=== PATIENT | female | born 1970 | race Caucasian/White ===

== ENCOUNTER 2018-04-19 17:37 | Emergency (ER) | payer OTHER, SELFPAY ==
[2018-04-19] MEDS ORDERED: FOLIC ACID 1 MG, MULTIVITAMINS INJ 10 ML, THIAMINE HCL 100 MG in NA CHLORIDE 0.9% 1,000 ML IV ONE (18:00)
[2018-04-19] MEDS ORDERED: ONDANSETRON 4 MG/2 ML VIAL ONE (18:04)
[2018-04-19] MEDS ORDERED: NA CHLORIDE 0.9% 500 ML ONE (18:04)
[2018-04-19] MEDS ORDERED: FAMOTIDINE 20 MG/2 ML VIAL IV ONE (18:05)
[2018-04-19 18:15] LABS: Protime INR 1.01
[2018-04-19 18:29] LABS: ALT/SGPT 34 U/L (12-78); AST/SGOT 50 U/L (15-37); Albumin 3.2 g/dL (3.4-5.0); Alkaline Phosphatase 81 U/L (45-117); BUN Blood Urea Nitrogen 5 mg/dL (7-18); Bicarbonate 26 mmol/L (21-32); Bilirubin Direct < 0.1 mg/dL (0-0.2); Bilirubin Total 0.2 mg/dL (0.2-1.0); Glucose Level 85 mg/dL (74-106); Potassium 3.4 mmol/L (3.5-5.1); Protein, Total 6.3 g/dL (6.4-8.2); Sodium Level 144 mmol/L (136-145)
[2018-04-19 18:32] LABS: Absolute Lymphocytes (CBC) 2.8 K/uL (0.7-4.9); Absolute Monocytes 0.4 K/uL (0.1-1.3); Basophils % 0.8 % (0-1.3); Eosinophils % 0.6 % (0-4.4); Hematocrit 34.3 % (36.0-45.0); Lymphocytes % 43.8 % (15.3-44.8); MCV 85.6 fL (80-100); MPV 6.5 fL (7.6-11.3); Monocytes % 6.5 % (3.3-12.3); RBC Red Blood Cell Count 4.01 M/uL (3.86-4.86)
[2018-04-19] MEDS ORDERED: LORazepam 2 MG/ML VIAL ONE (19:28)
[2018-04-19] MEDS ORDERED: HALOPERIDOL LACT 5 MG/ML INJ ONE (19:33)
[2018-04-19 19:43] LABS: Barbiturates NEGATIVE (NEGATIVE); Benzodiazepines NEGATIVE (NEGATIVE); Cocaine NEGATIVE (NEGATIVE); METHAMPHETAM NEGATIVE (NEGATIVE); Methadone NEGATIVE (NEGATIVE); Opiates NEGATIVE (NEGATIVE); Phencyclidine NEGATIVE (NEGATIVE); THC Cannibis NEGATIVE (NEGATIVE)
[2018-04-19 19:56] LABS: Urine Blood TRACE (NEG); Urine Glucose NEGATIVE (NEG); Urine Protein NEGATIVE (NEG); Urine Specific Gravity <1.005 (1.005-1.030); Urine pH 5.5 (5.0-7.0)
--- NOTE | 2018-04-19 22:26 | EKG ---
Test Date: 2018-04-19 Test Time: 17:53:11 [facility] Coordinator: NOREEN MEASUREMENT RESULTS: Intervals: Rate: 84 MN: 146 QRSD: 84 QT: 388 QTc: 458 Goodman: P: 42 MN: 146 QRS: 10 T: 45 INTERPRETIVE STATEMENTS: Normal sinus rhythm Normal ECG Compared to ECG 12/27/2016 13:45:25 No significant changes Electronically Signed On 04-19-18 22:25:42 CDT by Chago Berg
[2018-04-20] MEDS ORDERED: NA CHLORIDE 0.9% 1,000 ML ONE ×2 (02:44→03:52)
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
[2018-04-20] MEDS ORDERED: IBUPROFEN 200 MG TAB PO ONE (08:13)
== END 2018-04-20 08:58 | disposition home or self-care (01) ==
LOC: ER 17:37
DX: E87.6 Hypokalemia (principal); F41.9 Anxiety disorder, unspecified; F32.9 Major depressive disorder, single episode, unspecified
CPT/HCPCS: 36415; 80048; 80076; 80307; 80320; 80329; 81003; 82962; 84703; 85025; 85610; 85730; 93005; 96361; 96365; 96366; 96372; 96375; 99285; J1630; J2405; J3411; J7030

== ENCOUNTER 2018-06-15 17:01 | Emergency (ER) | payer SELFPAY ==
[2018-06-15] MEDS ORDERED: THIAMINE 200 MG/2 ML INJ ONE (17:33)
[2018-06-15] MEDS ORDERED: NA CHLORIDE 0.9% 1,000 ML ONE ×2 (17:34→19:16)
[2018-06-15] MEDS ORDERED: FAMOTIDINE 20 MG/2 ML VIAL IV ONE (17:34)
[2018-06-15] MEDS ORDERED: METHYLPREDNISOLONE 125 MG INJ ONE (17:40)
[2018-06-15 17:50] LABS: Absolute Lymphocytes (CBC) 2.1 K/uL (0.7-4.9); Absolute Monocytes 0.4 K/uL (0.1-1.3); Absolute Neutrophil 3.6 K/uL (1.8-8.0); Basophils % 1.2 % (0-1.3); Eosinophils % 0.2 % (0-4.4); Hematocrit 32.2 % (36.0-45.0); Lymphocytes % 34.3 % (15.3-44.8); MCH 26.8 pg (27.0-35.0); MCV 82.2 fL (80-100); MPV 6.5 fL (7.6-11.3); Monocytes % 6.2 % (3.3-12.3); RBC Red Blood Cell Count 3.92 M/uL (3.86-4.86)
[2018-06-15 17:56] LABS: Protime INR 1.01
[2018-06-15] MEDS ORDERED: FOLIC ACID 1 MG, MULTIVITAMINS INJ 10 ML, THIAMINE HCL 100 MG in NA CHLORIDE 0.9% 1,000 ML IV SCH (18:00)
[2018-06-15 18:12] LABS: Anisocytosis 2+; Blood Morphology Comment NOTED (NOT SEEN); Hypochromasia 1+; Macrocytosis 1+; Platelet Estimate ADEQ; Urine White Blood Cell Casts OK
[2018-06-15 18:13] LABS: Elliptocytes 1+
[2018-06-15 18:23] LABS: ALT/SGPT 23 U/L (12-78); AST/SGOT 34 U/L (15-37); Albumin 3.5 g/dL (3.4-5.0); Alkaline Phosphatase 80 U/L (45-117); BUN Blood Urea Nitrogen 5 mg/dL (7-18); Bicarbonate 22 mmol/L (21-32); Bilirubin Direct 0.1 mg/dL (0-0.2); Bilirubin Total 0.3 mg/dL (0.2-1.0); Glucose Level 91 mg/dL (74-106); Lipase 734 U/L (73-393); Magnesium 1.9 mg/dL (1.8-2.4); NT PRO-BNP 30 pg/mL (<125); Potassium 3.6 mmol/L (3.5-5.1); Protein, Total 6.7 g/dL (6.4-8.2); Sodium Level 144 mmol/L (136-145); Troponin (Emerg Dept Use Only) < 0.02 ng/mL (0.0-0.045)
--- NOTE | 2018-06-15 18:31 | RAD REPORT ---
EXAM DESCRIPTION: CT - CTHCSPWOC - 06/15/2018 6:15 pm CLINICAL HISTORY: Fall, head and neck injury COMPARISON: None. TECHNIQUE: Axial 5 mm thick images of the head were obtained. Axial 2 mm thick images of the cervic al spine were obtained with sagittal and coronal reconstruction images generated and reviewed. All CT scans are performed using dose optimization technique as appropriate and may include automated exposure control or mA/KV adjustment according to patient size. FINDINGS: No intracranial hemorrhage, mass, edema or acute intracranial finding. No suspicion for acute infarct ion. No extra-axial fluid collections. Mastoid air cells and paranasal sinuses are clear. No globe or orbit abnormality seen. Cervical body height and alignment are normal. C5-6 disc space narrowing present with bilateral bony foraminal encroachment. No fracture or acute bony abnormality. Central canal detail is inherently cisneros ited and cannot be fully assessed. Left-sided posterior endplate spurring at C5-6 likely has impact o n the cord. No paraspinal mass or hematoma. IMPRESSION: Negative CT head examination for acute or significant finding. No fracture or acute cervical spine finding. Advanced for age degenerative changes at C5-6 with bilateral bony foraminal encroachment and a left-s ided canal bone spur that likely flattens the cord.
[2018-06-15] MEDS ORDERED: MAGNESIUM SULFATE 1 gm IVPB 1 GM/100 ML BAG IV ONE (18:36)
--- NOTE | 2018-06-15 18:49 | ER ---
Nurse's Notes [facility] Name: Phoebe Sheets Age: 48 yrs Sex: Female : 1970 Arrival Date: 06/15/2018 Time: 17:06 Bed 20 Private MD: Diagnosis: Alcohol abuse;Alcohol abuse with intoxication;Fall due to bumping against object;Syncope and collapse Presentation: 06/15 17:08 Presenting complaint: EMS states: called out for intoxication, [place] [employer] wanted pt em assessed due to ETOH on board, PD reports pt had about 4 bottles of wine and was found in a neighbors yard passed out. Transition of care: patient was not received from another setting of care. Onset of symptoms was June 15, 2018. Risk Assessment: Do you want to hurt yourself or someone else? Patient reports no desire to harm self or others. Initial Sepsis Screen: Does the patient meet any 2 criteria? No. Patient's initial sepsis screen is negative. Does the patient have a suspected source of infection? No. Patient's initial sepsis screen is negative. Care prior to arrival: None. 17:08 Method Of Arrival: EMS: [facility] em 17:23 Acuity: JOVAN 3 ss Triage Assessment: 17:11 General: Appears in no apparent distress. comfortable, Behavior is cooperative, Smells em of alcohol. Pain: Unable to use pain scale. Historical: - Allergies: 17:11 No Known Allergies; em - Home Meds: 17:11 Prozac Oral [Active]; trazodone 100 mg Oral tab 1 tab daily [Active]; em - PMHx: 17:11 Anxiety; Depression; em - PSHx: 17:11 Gastric Bypass; ; Cholecystectomy; perf peptic ulcer; em - Immunization history:: Adult Immunizations unknown. - Social history:: Smoking status: unknown. - Ebola Screening: : Unable to complete screening because pt intoxicated . - Family history:: not pertinent. Screenin:19 Abuse screen: Denies threats or abuse. Nutritional screening: No deficits noted. em Tuberculosis screening: No symptoms or risk factors identified. Fall Risk None identified. Assessment: 17:14 General: Appears in no apparent distress. comfortable, slender, well developed, em Behavior is calm, cooperative, Smells of alcohol. Pain: Denies pain. Neuro: Level of Consciousness is awake, alert, obeys commands, Oriented to person, place, time, situation. Cardiovascular: Capillary refill < 3 seconds Patient's skin is warm and dry. Respiratory: Airway is patent Respiratory effort is even, unlabored, Respiratory pattern is regular, symmetrical. GI: Abdomen is flat, Abd is soft and non tender X 4 quads. : No signs and/or symptoms were reported regarding the genitourinary system. EENT: No signs and/or symptoms were reported regarding the EENT system. Derm: Skin is intact, Skin is pink, warm \T\ dry. Musculoskeletal: Range of motion: intact in all extremities. 17:20 General: The previous assessment is accurate, call light remains within reach. . ss 18:15 Reassessment: Patient appears in no apparent distress at this time. Patient and/or em family updated on plan of care and expected duration. Pain level reassessed. Patient is alert, oriented x 3, equal unlabored respirations, skin warm/dry/pink. 19:00 Reassessment: Patient appears in no apparent distress at this time. Patient and/or jb4 family updated on plan of care and expected duration. Pain level reassessed. Patient is alert, oriented x 3, equal unlabored respirations, skin warm/dry/pink. Pt reports wanting to leave. disconnected fluids and attempted to leave. alerted of situation and risk of leaving. General: Waiting for ride or for patient to become less intoxicated to discharge.. Cardiovascular: Patient's skin is warm and dry. Respiratory: Airway is patent Respiratory effort is even, unlabored, Respiratory pattern is regular, symmetrical. 20:00 Reassessment: Patient appears in no apparent distress at this time. Patient and/or jb4 family updated on plan of care and expected duration. Pain level reassessed. Patient is alert, oriented x 3, equal unlabored respirations, skin warm/dry/pink. 20:35 Reassessment: PT is becoming more agitated and uncooperative wanting to leave. jb4 Explained to pt the risk of leaving and the need to be continually be monitored until alcohol decreases. 21:26 Reassessment: Patient appears in no apparent distress at this time. Patient and/or jb4 family updated on plan of care and expected duration. Pain level reassessed. Patient is alert, oriented x 3, equal unlabored respirations, skin warm/dry/pink. Pt is being uncooperative. Pt attempting to push past staff and leave. removed own IV. Refusing to stay PD called and alerted of situation. Vital Signs: 17:14 BP 136 / 99; Pulse 76; Resp 16; Temp 98.2(TE); Pulse Ox 100% on R/A; em 18:35 BP 112 / 71; Pulse 66; Resp 14; Pulse Ox 99% on R/A; Pain 0/10; em 19:15 BP 122 / 76; Pulse 63; Resp 16; Pulse Ox 99% on R/A; jb4 20:00 BP 116 / 72; Pulse 76; Resp 16; Pulse Ox 99% on R/A; jb4 21:16 BP 116 / 72; Pulse 86; Resp 18; Pulse Ox 99% on R/A; jb4 ED Course: 17:06 Patient arrived in ED. em 17:09 Carloz Bah MD is Attending Physician. [facility] 17:16 Beck Cheung LVN is Primary Nurse. em 17:16 Arm band placed on. em 17:23 Triage completed. ss 17:40 Initial lab(s) drawn, by me, sent to lab. Inserted saline lock: 20 gauge in right mh5 antecubital area, using aseptic technique. Blood collected. 17:42 Patient has correct armband on for positive identification. Placed in gown. Bed in low mh5 position. Call light in reach. Side rails up X2. Warm blanket given. Pulse ox on. NIBP on. 17:43 X-ray completed. Portable x-ray completed in exam room. Patient tolerated procedure ls3 well. 17:43 Lipase Sent. 5 17:43 Acetaminophen Sent. 5 17:43 ETOH Level Sent. 5 17:43 Ptt, Activated Sent. 5 17:43 Salicylate Sent. 5 17:43 Basic Metabolic Panel Sent. 5 17:43 CBC with Diff Sent. 5 17:43 LFT's Sent. 5 17:43 Magnesium Sent. 5 17:43 NT PRO-BNP Sent. 5 17:44 PT-INR Sent. 5 17:44 Troponin (emerg Dept Use Only) Sent. 5 18:04 XRAY Chest (1 view) In Process Unspecified. EDMS 18:[address] wy 18:16 CT completed. Patient tolerated procedure well. Patient moved back from CT. vm2 18:17 CT Head C Spine In Process Unspecified. EDMS 19:35 Urine Culture Sent. 5 19:35 Urine Drug Screen Sent. 5 19:36 Urine collected: clean catch specimen, clear. 5 21:16 No provider procedures requiring assistance completed. IV discontinued, intact, jb4 bleeding controlled, Pt removed own IV. Administered Medications: 18:10 Drug: NS 0.9% 1000 ml Route: IV; Rate: 1 bolus; Site: left antecubital; ss 19:26 Follow up: Response: No adverse reaction; IV Status: Completed infusion jb4 18:10 Drug: Thiamine 100 mg Route: IV; Rate: bolus; Site: left antecubital; ss 18:10 Drug: Pepcid 20 mg Route: IVP; Site: left antecubital; ss 18:31 Follow up: Response: No adverse reaction em 18:31 Drug: Banana Bag - (NS 0.9% 1000 ml, foLIC Acid 1 mg, Thiamine 100 mg, Multivitamin 1 em amp) Route: IV; Rate: 125 ml/hr; Site: right antecubital; 21:10 Follow up: Response: No adverse reaction; IV Status: Pt removed own IV. jb4 18:31 Drug: Magnesium Sulfate 1 grams Route: IVPB; Infused Over: 1 hrs; Site: right em antecubital; 20:00 Follow up: Response: No adverse reaction; IV Status: Completed infusion jb4 19:25 Drug: Zofran 4 mg Route: IVP; Site: right antecubital; jb4 21:10 Follow up: Response: No adverse reaction; Nausea is decreased 4 19:26 Drug: NS 0.9% 1000 ml Route: IV; Rate: 1 bolus; Site: right antecubital; jb4 22:07 Follow up: IV Status: Order to discontinue infusion; Order to discontinue infusion, Pt jb4 removed IV. Outcome: 18:48 Discharge ordered by MD. bowles 21:16 Discharged to Law Enforcement 4 21:16 Condition: stable 21:16 Discharge instructions given to patient, Instructed on discharge instructions, follow up and referral plans. medication usage, Demonstrated understanding of instructions, follow-up care, medications, Prescriptions given X 3. 21:34 Patient left the ED. jb4 Signatures: Dispatcher [employer] EDCarloz Knight MD MD cha Munoz, Edgar, CAMPAIGN SPECIALIST CAMPAIGN SPECIALIST Aracelis Drew, ZEINAB RN Owen Pierre RN RN jb4 Parviz Hester Maria 5 Becca Teresa 2 Lizeth Zhong ls3 Corrections: (The following items were deleted from the chart) 21:30 19:00 Reassessment: Patient appears in no apparent distress at this time. Patient jb4 and/or family updated on plan of care and expected duration. Pain level reassessed. Patient is alert, oriented x 3, equal unlabored respirations, skin warm/dry/pink. jb4
--- NOTE | 2018-06-15 18:49 | EDPHYS ---
Physician Documentation [facility] Name: Phoebe Sheets Age: 48 yrs Sex: Female : 1970 Arrival Date: 06/15/2018 Time: 17:06 Bed 20 Private MD: ED Physician Carloz Bah HPI: 06/15 17:50 This 48 yrs old Female presents to ER via EMS with complaints of ETOH Abuse. wilbur 17:50 hx of etoh abuse. The patient presents with confusion, decreased mental status. Onset: wilbur The symptoms/episode began/occurred just prior to arrival. Possible causes: alcohol. Associated signs and symptoms: The patient has no apparent associated signs or symptoms. Onset: The symptoms/episode began/occurred today. Patient's baseline: Neuro: alert and fully oriented. Severity of symptoms: At their worst the symptoms were mild moderate in the emergency department the symptoms are unchanged. The patient has not experienced similar symptoms in the past. Historical: - Allergies: 17:11 No Known Allergies; em - Home Meds: 17:11 Prozac Oral [Active]; trazodone 100 mg Oral tab 1 tab daily [Active]; em - PMHx: 17:11 Anxiety; Depression; em - PSHx: 17:11 Gastric Bypass; ; Cholecystectomy; perf peptic ulcer; em - Immunization history:: Adult Immunizations unknown. - Social history:: Smoking status: unknown. - Ebola Screening: : Unable to complete screening because pt intoxicated . - Family history:: not pertinent. ROS: 17:50 Constitutional: Negative for fever, chills, and weight loss, Eyes: Negative for injury, wilbur pain, redness, and discharge, ENT: Negative for injury, pain, and discharge, Neck: Negative for injury, pain, and swelling, Cardiovascular: Negative for chest pain, palpitations, and edema, Respiratory: Negative for shortness of breath, cough, wheezing, and pleuritic chest pain, Abdomen/GI: Negative for abdominal pain, nausea, vomiting, diarrhea, and constipation, Back: Negative for injury and pain, : Negative for injury, bleeding, discharge, and swelling, MS/Extremity: Negative for injury and deformity, Skin: Negative for injury, rash, and discoloration, Psych: Negative for depression, anxiety, suicide ideation, homicidal ideation, and hallucinations, Allergy/Immunology: Negative for hives, rash, and allergies, Endocrine: Negative for neck swelling, polydipsia, polyuria, polyphagia, and marked weight changes, Hematologic/Lymphatic: Negative for swollen nodes, abnormal bleeding, and unusual bruising. 17:50 Neuro: Positive for altered mental status, weakness. Exam: 17:50 Constitutional: This is a well developed, well nourished patient who is awake, alert, wilbur and in no acute distress. Eyes: Pupils equal round and reactive to light, extra-ocular motions intact. Lids and lashes normal. Conjunctiva and sclera are non-icteric and not injected. Cornea within normal limits. Periorbital areas with no swelling, redness, or edema. ENT: Nares patent. No nasal discharge, no septal abnormalities noted. Tympanic membranes are normal and external auditory canals are clear. Oropharynx with no redness, swelling, or masses, exudates, or evidence of obstruction, uvula midline. Mucous membranes moist. Neck: Trachea midline, no thyromegaly or masses palpated, and no cervical lymphadenopathy. Supple, full range of motion without nuchal rigidity, or vertebral point tenderness. No Meningismus. Chest/axilla: Normal chest wall appearance and motion. Nontender with no deformity. No lesions are appreciated. Cardiovascular: Regular rate and rhythm with a normal S1 and S2. No gallops, murmurs, or rubs. Normal PMI, no JVD. No pulse deficits. Respiratory: Lungs have equal breath sounds bilaterally, clear to auscultation and percussion. No rales, rhonchi or wheezes noted. No increased work of breathing, no retractions or nasal flaring. Abdomen/GI: Soft, non-tender, with normal bowel sounds. No distension or tympany. No guarding or rebound. No evidence of tenderness throughout. Back: No spinal tenderness. No costovertebral tenderness. Full range of motion. Skin: Warm, dry with normal turgor. Normal color with no rashes, no lesions, and no evidence of cellulitis. MS/ Extremity: Pulses equal, no cyanosis. Neurovascular intact. Full, normal range of motion. Neuro: Awake and alert, GCS 15, oriented to person, place, time, and situation. Cranial nerves II-XII grossly intact. Motor strength 5/5 in all extremities. Sensory grossly intact. Cerebellar exam normal. Normal gait. Psych: Awake, alert, with orientation to person, place and time. Behavior, mood, and affect are within normal limits. 17:50 Neuro: Orientation: appropriate for stated age, Mentation: confused, Memory: appropriate for stated age, Cranial nerves: is grossly normal based on the patient's age, no acute changes, Cerebellar function: unable to test, Motor: moves all fours, Sensation: no obvious gross deficits, appropriate Gait: is unsteady, not tested. Babinski testing is normal. Vital Signs: 17:14 BP 136 / 99; Pulse 76; Resp 16; Temp 98.2(TE); Pulse Ox 100% on R/A; em 18:35 BP 112 / 71; Pulse 66; Resp 14; Pulse Ox 99% on R/A; Pain 0/10; em 19:15 BP 122 / 76; Pulse 63; Resp 16; Pulse Ox 99% on R/A; jb4 20:00 BP 116 / 72; Pulse 76; Resp 16; Pulse Ox 99% on R/A; jb4 21:16 BP 116 / 72; Pulse 86; Resp 18; Pulse Ox 99% on R/A; jb4 MDM: 17:09 Patient medically screened. [facility] 17:50 Data reviewed: vital signs, nurses notes, lab test result(s), EKG, radiologic studies, [facility] CT scan, plain films. 06/15 17:11 Order name: Basic Metabolic Panel; Complete Time: 18:46 [facility] 06/15 17:11 Order name: CBC with Diff; Complete Time: 18:46 [facility] 06/15 17:11 Order name: LFT's; Complete Time: 18:46 [facility] 06/15 17:11 Order name: Magnesium; Complete Time: 18:46 [facility] 06/15 17:11 Order name: NT PRO-BNP; Complete Time: 18:46 [facility] 06/15 17:11 Order name: PT-INR; Complete Time: 18:46 [facility] 06/15 17:11 Order name: Troponin (emerg Dept Use Only); Complete Time: 18:46 [facility] 06/15 17:11 Order name: Acetaminophen; Complete Time: 18:46 [facility] 06/15 17:11 Order name: ETOH Level; Complete Time: 18:46 [facility] 06/15 17:11 Order name: Ptt, Activated; Complete Time: 18:46 [facility] 06/15 17:11 Order name: Salicylate; Complete Time: 18:46 [facility] 06/15 17:11 Order name: Urine Drug Screen [facility] 06/15 17:11 Order name: Lipase; Complete Time: 18:46 [facility] 06/15 17:12 Order name: Urine Culture [facility] 06/15 17:11 Order name: XRAY Chest (1 view) [facility] 06/15 17:11 Order name: EKG; Complete Time: 17:13 [facility] 06/15 17:11 Order name: Cardiac monitoring; Complete Time: 17:44 [facility] 06/15 17:11 Order name: EKG - Nurse/Tech; Complete Time: 17:44 [facility] 06/15 17:11 Order name: IV Saline Lock; Complete Time: 17:44 [facility] 06/15 17:54 Order name: CT Head C Spine; Complete Time: 18:46 [facility] 06/15 18:04 Order name: CBC Smear Scan; Complete Time: 18:46 EDMI 06/15 19:37 Order name: Urine Dipstick--Ancillary (enter results) ri 06/15 19:37 Order name: Urine --Ancillary (enter results) ri 06/15 17:11 Order name: Labs collected and sent; Complete Time: 17:44 [facility] 06/15 17:11 Order name: O2 Per Protocol; Complete Time: 18:36 [facility] 06/15 17:11 Order name: O2 Sat Monitoring; Complete Time: 18:36 [facility] 06/15 17:11 Order name: Urine Dipstick-Ancillary (obtain specimen); Complete Time: 19:35 [facility] Administered Medications: 18:10 Drug: NS 0.9% 1000 ml Route: IV; Rate: 1 bolus; Site: left antecubital; ss 19:26 Follow up: Response: No adverse reaction; IV Status: Completed infusion jb4 18:10 Drug: Thiamine 100 mg Route: IV; Rate: bolus; Site: left antecubital; ss 18:10 Drug: Pepcid 20 mg Route: IVP; Site: left antecubital; ss 18:31 Follow up: Response: No adverse reaction em 18:31 Drug: Banana Bag - (NS 0.9% 1000 ml, foLIC Acid 1 mg, Thiamine 100 mg, Multivitamin 1 em amp) Route: IV; Rate: 125 ml/hr; Site: right antecubital; 21:10 Follow up: Response: No adverse reaction; IV Status: Pt removed own IV. jb4 18:31 Drug: Magnesium Sulfate 1 grams Route: IVPB; Infused Over: 1 hrs; Site: right em antecubital; 20:00 Follow up: Response: No adverse reaction; IV Status: Completed infusion jb4 19:25 Drug: Zofran 4 mg Route: IVP; Site: right antecubital; jb4 21:10 Follow up: Response: No adverse reaction; Nausea is decreased jb4 19:26 Drug: NS 0.9% 1000 ml Route: IV; Rate: 1 bolus; Site: right antecubital; jb4 22:07 Follow up: IV Status: Order to discontinue infusion; Order to discontinue infusion, Pt jb4 removed IV. Disposition: 06/15/18 18:48 Discharged to Home. Impression: Alcohol abuse, Alcohol abuse with intoxication, Fall due to bumping against object, Syncope and collapse. - Condition is Stable. - Discharge Instructions: Alcohol Intoxication, Fall Prevention in the Home, Weakness, Alcohol Intoxication, Dkye-ik-[id number], Near-Syncope, [id number], Alcohol Abuse and Nutrition, Weakness, Fybu-iq-Ojmu. - Prescriptions for Vitamin 27- 0.8 mg Oral Tablet - take 1 tablet by ORAL route once daily; 30 tablet. Zofran 4 mg Oral Tablet - take 1 tablet by ORAL route every 12 hours As needed; 20 tablet. Pepcid 20 mg Oral Tablet - take 1 tablet by ORAL route every 12 hours for 10 days; 20 tablet. - Medication Reconciliation Form, Thank You Letter, Antibiotic Education, Prescription Opioid Use form. - Follow up: Private Physician; When: 2 - 3 days; Reason: Recheck today's complaints, Continuance of care, Re-evaluation by your physician. - Problem is new. - Symptoms have improved. Signatures: Dispatcher [employer] EDMI Carloz Bah MD MD cha Munoz, Edgar, SCHEDULE ANNOUNCER SCHEDULE ANNOUNCER Aracelis Drew, Owen Yanez RN, RN RN jb4 Corrections: (The following items were deleted from the chart) 21:34 18:48 06/15/2018 18:48 Discharged to Home. Impression: Alcohol abuse; Alcohol abuse jb4 with intoxication; Fall due to bumping against object; Syncope and collapse. Condition is Stable. Discharge Instructions: Alcohol Intoxication, Fall Prevention in the Home, Weakness, Alcohol Intoxication, Oxhx-au-Gygo, Near-Syncope, Easi-ew-Lasf, Alcohol Abuse and Nutrition, Weakness, Bbbk-[id number]-Hgsv. Prescriptions for Vitamin 27-0.8 mg Oral Tablet - take 1 tablet by ORAL route once daily; 30 tablet, Zofran 4 mg Oral Tablet - take 1 tablet by ORAL route every 12 hours As needed; 20 tablet. and Forms are Medication Reconciliation Form, Thank You Letter, Antibiotic Education, Prescription Opioid Use. Follow up: Private Physician; When: 2 - 3 days; Reason: Recheck today's complaints, Continuance of care, Re-evaluation by your physician. Problem is new. Symptoms have improved. wilbur
[2018-06-15] MEDS ORDERED: ONDANSETRON 4 MG/2 ML VIAL ONE (19:16)
--- NOTE | 2018-06-15 19:24 | RAD REPORT ---
EXAM DESCRIPTION: RAD - Chest Single View - 06/15/2018 5:45 pm CLINICAL HISTORY: Cough, shortness of breath COMPARISON: December 2007 TECHNIQUE: AP portable chest image was obtained 1741 hours . FINDINGS: Lungs are clear. Heart and vasculature are normal. No measurable pleural effusion and no p neumothorax. No acute bony abnormality seen. No acute aortic findings suspected. IMPRESSION: No acute cardiopulmonary process.
[2018-06-15 19:57] LABS: Barbiturates NEGATIVE (NEGATIVE); Benzodiazepines NEGATIVE (NEGATIVE); Cocaine NEGATIVE (NEGATIVE); METHAMPHETAM NEGATIVE (NEGATIVE); Methadone NEGATIVE (NEGATIVE); Opiates NEGATIVE (NEGATIVE); Phencyclidine NEGATIVE (NEGATIVE); THC Cannibis NEGATIVE (NEGATIVE)
[2018-06-15 20:16] LABS: Urine Blood TRACE (NEG); Urine Glucose NEGATIVE (NEG); Urine Protein NEGATIVE (NEG); Urine pH 6.5 (5.0-7.0)
--- NOTE | 2018-06-16 06:59 | EKG ---
Test Date: 2018-06-15 Test Time: 17:50:58 Personnel Specialist: DARYN MEASUREMENT RESULTS: Intervals: Rate: 69 MT: 138 QRSD: 88 QT: 424 QTc: 454 [place]: P: 21 MT: 138 QRS: 21 T: 50 INTERPRETIVE STATEMENTS: Normal sinus rhythm Normal ECG Compared to ECG 04/19/2018 17:53:11 No significant changes Electronically Signed On 06-16-18 06:59:06 RESEARCH ASST by Chago Berg
== END 2018-06-15 21:34 | disposition home or self-care (01) ==
LOC: ER 17:01
DX: F10.129 Alcohol abuse with intoxication, unspecified (principal); R55 Syncope and collapse; W18.00XA Striking against unspecified object with subsequent fall, initial encounter; Y93.9 Activity, unspecified; Y92.9 Unspecified place or not applicable; F41.9 Anxiety disorder, unspecified; F32.9 Major depressive disorder, single episode, unspecified
CPT/HCPCS: 36415; 70450; 71045; 72125; 80048; 80076; 80307; 80320; 80329; 81003; 81025; 83690; 83735; 83880; 84484; 85025; 85610; 85730; 87086; 87088; 93005; 99285; J2405; J2930; J3411; J3475; J7030

== ENCOUNTER 2024-10-31 10:45 | Day surgery (SDC) | payer BC ==
--- NOTE | 2024-10-30 11:55 | EKG ---
Test Date: 2024-10-30 Test Time: 11:19:09 Credit Control Assistant: STEPH MEASUREMENT RESULTS: Intervals: Rate: 67 RI: 150 QRSD: 78 QT: 390 QTc: 412 [place]: P: 55 RI: 150 QRS: 41 T: 65 INTERPRETIVE STATEMENTS: Normal sinus rhythm Normal ECG Compared to ECG 05/01/2023 22:25:03 No significant changes Electronically Signed On 10-30-24 11:55:06 CDT by Miguelito Arriaga
[2024-10-31] MEDS ORDERED: Ringers Lactate 1,000 ML IV ONE (11:03)
[2024-10-31] MEDS ORDERED: ONDANSETRON 4 MG/2 ML VIAL ONE (11:23)
[2024-10-31] MEDS ORDERED: propofoL 200 MG/20 ML VIAL IV ONE (11:23)
[2024-10-31] MEDS ORDERED: LIDOCAINE 2% MPF 5 ML VIAL ONE (11:23)
[2024-10-31] MEDS ORDERED: MIDAZOLAM HCL 2 MG/2 ML INJ ONE (11:24)
[2024-10-31] MEDS ORDERED: FENTANYL CITR 100 MCG/2 ML ONE (11:24)
[2024-10-31] MEDS: CEFOXITIN SODIUM 2 GM/VIAL ONE (12:28)
[2024-10-31] MEDS: LIDOCAINE HCL/EPINEPHRINE 20 ML MDV ONE (12:45)
[2024-10-31] MEDS: METHYLENE BLUE 1% 10 ML VIAL ONE (12:48)
[2024-10-31] MEDS ORDERED: GLYCOPYRROLATE 0.2 MG/ML SYR ONE (12:54)
[2024-10-31] MEDS ORDERED: dexAMETHasone 10 MG/ML VIAL ONE (12:54)
--- NOTE | 2024-10-31 12:57 | P.OP ---
Preoperative diagnosis: Perineal Cyst Postoperative diagnosis: Perineal Cyst Primary procedure: Exam Under Anesthesia Secondary procedure: Excision of Perineal Cyst Anesthesia: GETA + Local Estimated blood loss: <5cc Specimen: Perineal Cyst Findings: ~ 2cm perineal cyst Complications: None Transferred to: Recovery Room Condition: Good
[2024-10-31 13:17] VITALS: O2SAT 100
--- NOTE | 2024-10-31 13:30 | OP ---
Date of Procedure: 10/31/2024 Surgeon: Glen Romo MD, Preoperative Diagnosis: Perineal cyst. Postoperative Diagnosis: Perineal cyst. Procedures Performed: 1. Exam under anesthesia. 2. Excision of perineal cyst. Anesthesia: General endotracheal plus local with 1% lidocaine with epinephrine. Estimated Blood Loss: Less than 5 cc. Specimen: Hernia cyst. Findings: Approximately 2 cm perineal cyst adjacent to the anus along the right buttock area at the 7 o'clock position. Complications: None. Disposition: The patient transferred to recovery room in good condition. Procedure In Detail: After informed consent was obtained, patient was brought to the operating room, prepped and draped in the usual sterile fashion after adequate anesthesia was achieved. I anestheti zed an area of a perineal cyst which was palpable; position as described above. I then injected meth ylene blue into this area. I performed anoscopy at this point looking at the anus to see if there wa s any methylene blue emanating from this area, in which none was appreciated. At this point, the pro cedure was abandoned from the intraanal portion of this as there was no evidence of fistulous connect ion. At this point, I proceeded to make an elliptical incision circumferentially around the cyst ult imately with a 15 blade down to subcutaneous tissues. Electrocautery was used to dissect circumferen tially around all blue affected tissues. This was then taken out in its entirety and sent off for pa thologic examination. The area was copiously irrigated and closed with interrupted 3-0 nylon sutures and sterile dressing placed over top. The patient tolerated the procedure without incident or compl ication and transferred to PACU in good condition. All counts were correct at the end of the case. YOVANA/BIJALL Voice ID: [id number] Report ID: [id number]
[2024-10-31] MEDS ORDERED: HYDROCODONE/APAP 7.5/325 MG TAB ONE (14:24)
[2024-10-31] MEDS: HYDROCODONE/APAP 7.5/325 MG TAB PO ONE (14:38)
[2024-10-31 15:00] VITALS: BP 109/73; TEMP 97.2
== END 2024-10-31 14:56 | disposition home or self-care (01) ==
LOC: OR 10:45
PROVIDERS: ATTEND Surgery
PROC: 0WBN0ZZ Excision of Female Perineum, Open Approach (ICD-10-PCS; principal; 2024-10-31 12:45)
DX: L72.0 Epidermal cyst (principal)
CPT/HCPCS: 11422; 93005; 88304; J2704; J2003; J2250; J3010; J1100; J0694; J2405; J7120